=== PATIENT | female | born 1980 | race Caucasian/White ===

== ENCOUNTER → 2019-05-16 13:33 | Outpatient (CLI) | payer BC, SELFPAY ==
--- NOTE | 2019-05-16 | DI.US.S_ITS ---
LIMITED ULTRASOUND OF RIGHT BREAST: 05/16/2019 CLINICAL: Palpable right breast lump by physician. [facility] the right breast 9 o'clock region was performed. Jason scale images of the real-time examination were reviewed. No significant abnormalities were seen sonographically in the right breast. Specifically, no finding to correspond to the patient's palpable abnormality. IMPRESSION: NEGATIVE There is no sonographic correlate to the patient's palpable abnormality and no evidence of malignancy. A 3 year screening mammogram is recommended. Findings and recommendations were conveyed to the patient at time of exam. This exam was interpreted at Station ID: [id number]. Electronically Signed By: Eloisa stinson/:05/16/2019 18:13:19 letter sent: Normal Exam Ultrasound BI-RADS: 1 Negative
--- NOTE | 2019-05-16 | DI.MG.S_ITS ---
BILATERAL DIGITAL DIAGNOSTIC MAMMOGRAM 3D/2D: 05/16/2019 CLINICAL: Right breast lump. Baseline exam. No prior exams were available for comparison. There are scattered fibroglandular elements in both breasts. No significant masses, calcifications, or other findings are seen in either breast. Specifically, no finding to correspond to the patient's palpable abnormality. IMPRESSION: INCOMPLETE: NEEDS ADDITIONAL IMAGING EVALUATION There is no abnormality seen in the right breast to correspond with the palpable abnormality at 9 o'clock, however, ultrasound is recommended. This was performed immediately following this exam. This exam was interpreted at Station ID: [id number]. NOTE: For mammograms, a report in lay terms will be sent to the patient. Approximately 15% of breast malignancies will not be visualized mammographically. In the management of a palpable breast mass, a negative mammogram must not discourage biopsy of a clinically suspicious lesion. Electronically Signed By: Eloisa stinson/:05/16/2019 18:11:38 ACR BI-RADS Category 0: Incomplete [id number]
== END ==
PROVIDERS: PCP Nurse Practitioner Family; Visit Provider Nurse Practitioner Family
DX: R92.8 Other abnormal and inconclusive findings on diagnostic imaging of breast (principal); N63.15 Unspecified lump in the right breast, overlapping quadrants
CPT/HCPCS: 76642; 77066; G0279

== ENCOUNTER 2022-07-19 12:43 | Day surgery (SDC) | payer BC, SELFPAY ==
--- NOTE | 2022-07-19 | PATH_ITS ---
[facility] Accession Number: [id number] No. of containers..03 Tissue . 01 Material submitted: . PART A: colon - DESCENDING COLON POLYP PART B: colon - CECAL POLYP PART C: colon - TRANSVERSE POLYP . 01 Diagnosis: A. Descending Colon Polyp, Biopsy: Tubular adenoma. . B. Cecal Polyp, Biopsy: Serrated polyp with focal crypt architectural features consistent with sessile serrated adenoma. . C. Transverse Colon Polyp, Biopsy: Tubular adenoma. MRV 07/22/2022 1449 Local . 01 Electronically signed: . Florence Norton MD, Pathologist NPI- [id number] . 01 Gross description: . Part A: DESCENDING COLON POLYP: Received in formalin is 1 fragment(s) of ramires, soft tissue measuring 0.3 x 0.2 x 0.1 cm submitted entirely in 1 cassette(s) Part B: CECAL POLYP: Received in formalin is 1 fragment(s) of ramires, soft tissue measuring 0.8 x 0.3 x 0.3 cm submitted entirely in 1 cassette(s) Part C: TRANSVERSE POLYP: Received in formalin is 1 fragment(s) of ramires, soft tissue measuring 0.7 x 0.5 x 0.5 cm submitted entirely in 1 cassette(s) /CPE 07/21/2022 0900 Local . 01 Pathologist provided ICD-10: D12.4, D12.0, D12.3 . 01 CPT . 486715, 691522, 158955 Specimen Comment: A courtesy copy of this report has been sent to [phone] Performed at: [facility] [address] [place] [address] [address], [place], [place] [id number] MD Warren Pierce MD Phone: [phone]
[2022-07-19 13:07] VITALS: BMI 39.5
[2022-07-19] MEDS: LACTATED RINGERS 1,000 ML 120 ML IV (13:25)
[2022-07-19 13:26] VITALS: BP 129/81; PULSE 65; RESP 16; TEMP 36.2; O2SAT 98
--- NOTE | 2022-07-19 14:00 | PM.HP.1 ---
History of Present Illness History of Present Illness Date Patient Seen: 07/19/22 Time Patient Seen: 14:00 Chief complaint: Colonoscopy Narrative: Family history of colon cancer. [facility] Medical History Anxiety (~2004) Chicken pox (~1987) Chronic back pain (~2006) Gastric reflux Heavy menstrual period (~2015) Infertility (~2010) Ovarian cyst (~2004) Painful menstrual periods Surgical History Anesthesia [place] teeth removed Family History Father Cancer Diabetes mellitus Multiple myeloma Pick's disease Mother PCOS (polycystic ovarian syndrome) Thyroid disorder Grandfather Lung disease Grandmother Cancer Hypertension Hyperlipidemia Stroke Grandfather Cancer Diabetes mellitus Grandmother Cancer Atrial fibrillation Social History household members: spouse Smoking Status: Never smoker alcohol intake: current Meds Home Medications and Allergies Home Medications Medication Instructions Recorded Confirmed Type cyclobenzaprine 5 mg tablet 5 mg PO TID PRN Muscle Spasm 04/26/19 07/19/22 History lorazepam 0.5 mg tablet (Ativan) 0.5 mg PO DAILY PRN Anxiety 04/26/19 07/19/22 History magnesium 1 dose PO DAILY 04/26/19 07/19/22 History omega-3 fatty acids [Fish Oil 1 tab PO DAILY 04/26/19 07/19/22 History Concentrate] ondansetron HCl 4 mg tablet 4 mg PO Q8H PRN Nausea 04/26/19 07/19/22 History (Zofran) biotin 1,000 mcg chewable tablet 2,000 mcg PO DAILY 12/04/19 07/19/22 History Allergies Allergy/AdvReac Type Severity Reaction Status Date / Time No Known Drug Allergies Allergy Verified 07/19/22 13:03 Review of Systems Review of Systems ROS: Yes All systems reviewed with the patient and are negative except as otherwise documented Exam Vital Signs (past 8 hours): - 07/19/22 13:26 Temperature 97.1 F L Pulse Rate 65 Respiratory Rate 16 Blood Pressure 129/81 Pulse Oximetry 98 Oxygen Delivery Method Room Air Oxygen Delivery Method Room Air Const General: cooperative HENMT Head: normal to inspection Eyes General: appearance normal, both eyes and all related structures Neck Neck: normal visual inspection Chest Chest: normal inspection of the chest Resp Effort & Inspection: normal respiratory effort Cardio Rate: regular rate GI Inspection: normal to inspection Skin General: no rashes or lesions noted Neuro General: patient alert and patient awake Extrem General: normal to inspection and no pedal edema Psych Appearance: grossly normal Assessment & Plan Assessment & Plan narrative: 41-year-old female with a family history of colon cancer. Colonoscopy is pursued today.
--- NOTE | 2022-07-19 14:01 | PM.PREOP ---
Pre-operative Note Interval Note History & Physical reviewed/Exam performed by Physician: Yes Changes to H&P: No ASA Class (for procedural sedation): II
--- NOTE | 2022-07-19 15:19 | PM.OP.COLON ---
Operative Date/Time/Diagnoses Date of procedure: 07/19/22 Time of procedure: 15:19 Pre-op diagnosis: Family history of colon cancer Post-op diagnosis: same Procedure & Clinicians Study performed: Colonoscopy with hot snare polypectomy cold snare polypectomy cold forceps polypectomy. Same procedure as scheduled: Yes Indications: Family history of colon cancer. Surgeon: Jonh Villa Procedure Notes SCOAP/Timeout: Done Procedure in detail: After the risks and benefits were explained, written and verbal informed consent was obtained. The patient was brought into the procedure room and placed into the left lateral decubitus position. Please see anesthesia notes for sedation details. Digital rectal examination was accomplished. The scope was introduced into the patient and advanced under direct visualization to the cecum as identified by the appendiceal orifice and ileocecal valve. The scope was slowly withdrawn to carefully examine the mucosa for any defects or lesions. Comprehensive imaging was accomplished throughout the rectum including the dentate line. The colon was decompressed, the scope was then removed from the patient who tolerated the procedure well. Scope withdrawal time: 14 minutes Sedation minutes: 21 Complications: none Impression: In the transverse colon there was an approximately 10 mm pedunculated polyp removed with hot snare. In the descending colon there was a diminutive polyp perhaps 5 mm removed with cold snare. However there was still a small fragment of polyp remaining after this maneuver so this was addressed with cold forceps. In the cecum there was a sessile perhaps 14 mm polyp near the appendiceal orifice that was removed with hot snare polypectomy. No additional pathology was appreciated throughout. Endoscopic diagnosis 1. Multiple colon polyps 2. Otherwise visually unremarkable colonoscopy Post-procedure Plan for aftercare: 1. Await histopathology. 2. Repeat colonoscopy 3 years. Disposition: PACU
[2022-07-19 15:21] VITALS: BP 116/75; PULSE 84; RESP 20; TEMP 36.5; O2SAT 92
[2022-07-19 15:25] VITALS: BP 113/71; PULSE 80; RESP 20; O2SAT 92
[2022-07-19 15:30] VITALS: BP 113/76; PULSE 74; RESP 20; TEMP 36.5; O2SAT 93
[2022-07-19 15:33] VITALS: BP 116/79; PULSE 70; RESP 18; TEMP 36.5; O2SAT 95
--- NOTE | 2022-07-19 15:55 | SUR.PHASEII ---
DC home with all belongings. WC to vehicle
== END 2022-07-19 15:56 | disposition home or self-care (01) ==
PROVIDERS: PCP Nurse Practitioner Family; Referring Provider Internal Medicine Gastroenterology; Visit Provider Internal Medicine Gastroenterology
PROC: 0DJD8ZZ Inspection of Lower Intestinal Tract, Via Natural or Artificial Opening Endoscopic (ICD-10-PCS; CPT 45378; principal; 2022-07-19 14:00)
DX: Z12.11 Encounter for screening for malignant neoplasm of colon (principal); Z80.0 Family history of malignant neoplasm of digestive organs; D12.4 Benign neoplasm of descending colon; D12.0 Benign neoplasm of cecum; D12.3 Benign neoplasm of transverse colon
CPT/HCPCS: 45385; 45380; J2704